=== PATIENT | male | born 1980 | race Two or more races ===

== ENCOUNTER 2024-09-09 14:28 | Emergency (ER) | payer OTHER, SELFPAY ==
[2024-09-09 14:43] VITALS: BP 104/64
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
== END 2024-09-09 16:14 | disposition home or self-care (01) ==
LOC: EMR 14:28
PROVIDERS: EMERGENCY PHYSICIAN Emergency Medicine; FAMILY PHYSICIAN Family Medicine
DX: S52.592A Other fractures of lower end of left radius, initial encounter for closed fracture (principal); Y04.0XXA Assault by unarmed brawl or fight, initial encounter
CPT/HCPCS: 29125; 99283; 73110